=== PATIENT | female | born 1955 | race Caucasian/White ===

== ENCOUNTER 2018-02-06 18:00 | Outpatient (RCR) | payer OTHER, SELFPAY ==
--- NOTE | 2018-01-24 07:40 | HP.OTEVAL ---
Patient's Visit Information SYLVIE TATE is a 62 year old F, referred to Occupational Therapy by Nemesio Fish, with a diagnosis of pain in right wrist -pain in left wrist. Date of Evaluation: 01/23/18 Occupational Therapist: Tita Denney, OTR/[place], CHT - Subjective Subjective: This pt was referred to OT with symptoms of pain in wrist shooting into her fingers tips- pt states did give her medication to assist in decreassing the inflamation. pt states she has had tendonities for year in both wrist- pt states she also has arthritis. pt states she does have wrist brace at night. pt states cold air or weather does increase her pain. 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 - Pain left wrist 4 Pain Intensity Range: 0, 4 right wrist 4 Pain Intensity Range: 0, 4 - ROM Wrist: right 60/40 left 70/75 ROM Comments: right RD [address] 10 UD 30 - Strength Senior Business Development Analyst: right 30# left 40# Lateral Pinch: right 2# left 4# Tripod Pinch: right 1# left 3# - Sensation Thumb: right 3.22 left 2.83 Index: right 2.83 left 2.83 Middle: right 2.83 left 2.83 Ring: right 2.83 left 2.83 Little: right 2.83 left 2.83 Sensation Comments: pt states N/T with driving but states this has been going on for awile. pt states her finger tips get cold at times. - Hand/Wrist Evaluation Total Score of Pain & Functional Sections: 52 - Goals Goal:: pt will demo a increase in bilateral chauffeur strength by 20# to increase ind. with BADLs and IADLS by d/c Goal:: pt will report pain no greater than 1/10 with use of bilateral hands/UB with use of BADLs and IADLs by D/C Goal:: pt will demo understanding of joint protection, use of ad. eq and ergo tranning by d/c Goal:: pt will demo understanding of donning and doffing of custom ortthosis by end of 1st visit-. pt will demo understanding of orthosis precautions by end of 1st session. - Rehabilitation General Assessment: pt demo with positive right Dequervains and left wrist pain with resistance in flex/ext- pt would benefit from custom orthosis for right wrist to decrease pain- pt was ed today on orthosis use, care and precautions. pt is to return if she needs orthosis adj ant. pt would benefit from skilled OTR/L, CHT services to decrease pts pain and promote good work and ADLs ergonomics- pt demo with arthitis deformities on bilateral hands at [facility], MP and IP of thumbs and MCP, PIP and DIP of bilateral digits- pt does also demo with arthritis formation at base of IF and carpal bones- pt would benefit from ed. on joint protection and ad. eq use for ADLS and IADS. Rehabilitation Potential: Good - Anticipated Interventions Anticipated Interventions: A/AAROM/PROM, Strengthening, Triggerpoint Release, Modalities, Orthoses, Joint Protection/Energy Conservation, Ergonomic Education - Visit Plan Frequency: 1-2x /Week Duration: 6 Weeks TEXT: Thank you for the opportunity to evaluate your patient. For Medicare and Medicare HMO plans, please review the plan of care and approve it. It will need to be FAXED BACK to us at [phone] for Medicare purposes. Please let me know if there are questions or concerns regarding this plan of care. Physician Signature: Date:
--- NOTE | 2018-02-06 18:00 | DT_ITS ---
This patient was seen during an EMR downtime February 06, 2018 - February 13, 2018. This patient may have a combination of paper and electronic documentation or all paper documentation. All documentation is viewable within the e-chart portion of [employer] for each patient visit.
--- NOTE | 2018-03-22 12:18 | HP.OT.NRP ---
HP - Discharge Summary - Patient Information SYLVIE TATE was seen in my office for initial evaluation on 01/23/18. The following Plan of Care was established for this patient: Initial Frequency: 1-2x /Week Initial Duration: 6 Weeks - Anticipated Interventions Anticipated Interventions: A/AAROM/PROM, Strengthening, Triggerpoint Release, Modalities, Orthoses, Joint Protection/Energy Conservation, Ergonomic Education This patient was last seen in our office 02/06/18. Pertinent comments regarding their Occupational therapy will appear below: pt was seen for initial eval and then 2nd visit- pt continued to report pain following work tasks- pt was to cont. with therapy but has not scheduled since February 06. OT will D/C pt due to non attendance. At this point I will be discontinuing this patient from occupational therapy. I would be happy to see this patient again in the future if found appropriate by the physician. Thank you! Tita Denney, OTR/L, CHT
== END 2018-02-06 19:00 | disposition home or self-care (01) ==
LOC: OT 18:00
PROVIDERS: Family Provider Nurse Practitioner Family; PCP Nurse Practitioner Family; Visit Provider Orthopaedic Surgery
DX: M25.532 Pain in left wrist (principal); M25.531 Pain in right wrist
CPT/HCPCS: 97035; 97140; 97166; 97760

== ENCOUNTER → 2018-03-29 06:37 | Outpatient (CLI) | payer OTHER, SELFPAY ==
--- NOTE | 2018-03-29 10:31 | NEURO ---
NCS and/or EMG Patient Report Ordering Doctor: Nemesio Fish DATE OF SERVICE: 03/29/18 This is a bilateral upper extremity nerve conduction study performed on this 62-year-old female with a history of numbness tingling and weakness in both hands worse on the right side. Symptoms have been present for several years. Bilateral upper extremity sensory and motor nerve conduction studies are performed along with F waves latencies. The median motor and sensory distal latencies are prolonged with preservation of amplitudes and conduction velocities. The ulnar motor and sensory and radial sensory responses are normal. The median F waves bilaterally are mildly prolonged worse on the right side. Impression this is an abnormal nerve conduction study of the bilateral upper extremities consistent with carpal tunnel syndrome bilaterally, moderate.
--- NOTE | 2018-03-29 10:34 | NEURO_ITS ---
NCS and/or EMG Patient Report Ordering Doctor: Nemesio Fish DATE OF SERVICE: 03/29/18 This is a bilateral upper extremity nerve conduction study performed on this 62- year-old female with a history of numbness tingling and weakness in both hands worse on the right side. Symptoms have been present for several years. Bilateral upper extremity sensory and motor nerve conduction studies are performed along with F waves latencies. The median motor and sensory distal latencies are prolonged with preservation of amplitudes and conduction velocities. The ulnar motor and sensory and radial sensory responses are normal. The median F waves bilaterally are mildly prolonged worse on the right side. Impression this is an abnormal nerve conduction study of the bilateral upper extremities consistent with carpal tunnel syndrome bilaterally, moderate.
== END ==
PROVIDERS: Family Provider Nurse Practitioner Family; PCP Nurse Practitioner Family; Visit Provider Orthopaedic Surgery
DX: M25.531 Pain in right wrist (principal); M25.532 Pain in left wrist
CPT/HCPCS: 95911

== ENCOUNTER → 2020-10-03 08:10 | Outpatient (CLI) | payer OTHER, SELFPAY ==
[2020-10-03 10:09] LABS: Vitamin D,25 Hydroxy 71.5 ng/mL
[2020-10-03 10:26] LABS: ALB/GLOB Ratio 1.1 RATIO (0.9-2.4); AST(SGOT) 13 U/L (15-37); Alanine Aminotransfer ALT/SGPT 25 U/L (13-56); Albumin, Serum 3.8 g/dL (3.2-5.0); Alkaline Phosphatase 86 U/L (45-117); Anion Gap 6 (5-15); BUN 14 mg/dL (7-18); BUN/Creat Ratio 20.3 RATIO (10-20); Calcium,Total 8.6 mg/dL (8.5-10.1); Chloride 110 mmol/L (98-107); Cholesterol 184 mg/dL (200); Creatinine, Serum 0.69 mg/dL (0.55-1.02); EST Glomerular Filtration Rate 91 mL/min (>60); Est Glom Filt Rate - Afr Amer 111 mL/min (>60); Globulin 3.4 g/dL (2.2-4.2); Glucose 86 mg/dL (74-106); High Density Lipoprotein 73 mg/dL; Potassium 4.1 mmol/L (3.5-5.1); Protein, Total 7.2 g/dL (6.4-8.2); Sodium Level 140 mmol/L (136-145); Triglycerides 71 mg/dL; Very Low Density Lipoprotein 14 mg/dL (5-40)
== END ==
PROVIDERS: PCP Family Medicine; Referring Provider Family Medicine; Visit Provider Family Medicine
DX: E55.9 Vitamin D deficiency, unspecified (principal); E78.5 Hyperlipidemia, unspecified
CPT/HCPCS: 36415; 80053; 80061; 82306

== ENCOUNTER → 2021-06-24 08:09 | Outpatient (CLI) | payer OTHER, SELFPAY ==
[2021-06-24 10:15] LABS: Absolute Lymphocyte Count 2.31 X10^3/uL (0.83-4.51); Absolute Neutrophil Count 2.4 X10^3/uL (2.0-7.7); Basophil# 0.05 X10^3/uL; Basophil% 0.9 % (0-1); Eosinophil# 0.15 X10^3/uL; Eosinophils% 2.8 % (0-5); Hematocrit 40.9 % (37-47); Hemoglobin 13.1 g/dL (12.0-15.0); Lymphocyte # 2.31 X10^3/ul (0.83-4.51); Lymphocyte % 43.3 % (19-41); Mean Corpuscular Hgb 29.3 pg (27.0-32.0); Mean Corpuscular Volume 91.5 fL (81-99); Mean Platelet Vol. 11.1 fl (6.2-12.0); Monocyte# 0.37 X10^3/uL; Monocyte% 6.9 % (0-10); NRBC Flagged by Analyzer 0 % (0-5); Neutrophil # 2.43 X10^3/uL (2.7-7.7); Neutrophil % 45.7 % (47-70); Platelet Count 325 K/mm3 (150-450); RBC Distribution Width CV 13.1 % (11.6-14.6); Red Blood Count 4.47 M/mm3 (4.2-5.4); White Blood Count 5.3 K/mm3 (4.4-11.0)
[2021-06-24 10:27] LABS: AST(SGOT) 16 U/L (15-37); Alanine Aminotransfer ALT/SGPT 20 U/L (13-56); Albumin, Serum 3.6 g/dL (3.2-5.0); Alkaline Phosphatase 91 U/L (45-117); Anion Gap 6 (5-15); BUN 22 mg/dL (7-18); BUN/Creat Ratio 27.8 RATIO (10-20); Calcium,Total 8.7 mg/dL (8.5-10.1); Chloride 108 mmol/L (98-107); Cholesterol 166 mg/dL (200); Creatinine, Serum 0.79 mg/dL (0.55-1.02); EST Glomerular Filtration Rate 78 mL/min (>60); Est Glom Filt Rate - Afr Amer 94 mL/min (>60); Globulin 3.6 g/dL (2.2-4.2); Glucose 98 mg/dL (74-106); High Density Lipoprotein 67 mg/dL; Protein, Total 7.2 g/dL (6.4-8.2); Sodium Level 141 mmol/L (136-145); Triglycerides 57 mg/dL; Very Low Density Lipoprotein 11 mg/dL (5-40)
== END ==
PROVIDERS: PCP Family Medicine; Referring Provider Family Medicine; Visit Provider Family Medicine
DX: E78.5 Hyperlipidemia, unspecified (principal)
CPT/HCPCS: 36415; 80053; 80061; 85025

== ENCOUNTER → 2022-01-26 | Outpatient (CLI) | payer OTHER, SELFPAY ==
--- NOTE | 2022-01-26 15:40 | BI_ITS ---
MAMMOGRAPHY - BILATERAL SCREENING REASON FOR EXAM: Female, 66 years old. Routine annual screening examination. PERTINENT HISTORY: Non-contributory. TECHNIQUE: Digital bilateral breast miriam (3D mammographic acquisition) in the CC and MLO projections. 2-D mediolateral oblique (MLO) and craniocaudad (CC) views of both breasts were obtained. CAD: Full Field Digital Mammography with Computer Added Detection was performed. COMPARISON: Bilateral screening mammogram from 03/25/2020, 01/10/2019. FINDINGS: Breast Composition: The breasts are heterogeneously dense, which may obscure small masses. There are no dominant masses or suspicious calcifications. No other significant abnormalities are identified. There has been no significant change since the prior study. BI/SCRN MAMM (CAD)W/MIRIAM BILAT IMPRESSION: Stable bilateral screening mammogram. Yearly follow-up mammogram recommended. (A) ASSESSMENT CATEGORY: BIRADS Category 1: Negative. A letter regarding these results will be sent to the patient by the facility within 30 days. Approximately 10% of breast cancers are not detected by mammography. A normal mammogram should not delay biopsy of a clinically suspicious abnormality. [id number] Electronically Signed: Antolin Jimenez, at 15:44 EDT ,
--- NOTE | 2022-01-26 15:44 | BD_ITS ---
STUDY: DUAL ENERGY X-RAY ABSORPTIOMETRY / DXA REASON FOR EXAM: Female, 66 years old. [id number]. The patient is postmenopausal. TECHNIQUE: Bone Mineral Density (BMD) measurements of lumbar spine and bilateral hips were obtained. COMPARISON: None. FINDINGS: Lumbar Spine (L1-L4): g/cm2 (0.737) / T-score (-2.8) / Z-score (-1.0) Findings are suggestive of osteoporosis with a high fracture risk. Left Femur Total: g/cm2 (0.795) / T-score (-1.2) / Z-score (0.0) Left Femoral Neck: g/cm2 (0.621) / T-score (-2.1) / Z-score (-0.5) Right Femur Total: g/cm2 (0.798) / T-score (-1.2) / Z-score (0.1) Right Femoral Neck: g/cm2 (0.667) / T-score (-1.7) / Z-score (0.1) BD/Dexa Bone Density Study IMPRESSION: The patient is considered osteoporotic as outlined below according to World Abhinav Organization (WHO) criteria with a high fracture risk. Reference Information: The T-score is the number of standard deviations above or below the standard which is normal for young adults at their peak bone mineral density. The World Health Organization (WHO) interprets the T-scores as follows: Above -1 Normal bone density Between -1 and -2.5 Osteopenia Equal to / or below -2.5 Osteoporosis As a practical clinical guideline, osteopenia may be graded as follows: Mild -1 through -1.5 Moderate -1.6 through -2.0 Severe -2.1 through -2.4 The Z-score is the number of standard deviations above or below age-matched controls. A Z-score of less than -1.5 would be considered abnormal. References: 1. NIH Osteoporosis and Related Bone Diseases www osteo.org 2. International Society for Clinical Densitometry www iscd.org 3. National Osteoporosis Foundation www nof.org Electronically Signed: Jamie Colin MD at 10:39 EDT ,
== END | disposition home or self-care (01) ==
LOC: OPBD 15:38
PROVIDERS: PCP Family Medicine; Visit Provider Family Medicine
DX: Z00.00 Encounter for general adult medical examination without abnormal findings (principal); Z12.31 Encounter for screening mammogram for malignant neoplasm of breast; Z78.0 Asymptomatic menopausal state
CPT/HCPCS: 77063; 77067; 77080

== ENCOUNTER → 2022-03-05 | Outpatient (CLI) | payer OTHER, SELFPAY ==
--- NOTE | 2022-03-05 08:12 | RAD_ITS ---
STUDY: BARIUM ENEMA. REASON FOR EXAM: Female, 66 years old. INCOMPLETE COLONS COPY FLUOROSCOPY TIME (if supplied): ( 59 seconds ) minutes/seconds. 12 images were obtained. TECHNIQUE: Barium was introduced retrograde through the rectum. The entire colon was opacified. COMPARISON: None. FINDINGS: Redundancy of the sigmoid colon. No evidence of retrograde or antegrade obstruction to the floor of contrast. No intraluminal filling defect is seen. No mass lesion is present. RAD/Barium Enema No Air Cont IMPRESSION: Unremarkable barium enema. Redundancy of the sigmoid colon. Electronically Signed: Jamie Colin MD at 11:16 EDT ,
== END | disposition home or self-care (01) ==
PROVIDERS: PCP Family Medicine; Referring Provider Internal Medicine Gastroenterology; Visit Provider Internal Medicine Gastroenterology
DX: K56.609 Unspecified intestinal obstruction, unspecified as to partial versus complete obstruction (principal)
CPT/HCPCS: 74270

== ENCOUNTER 2022-10-22 08:11 | Outpatient (CLI) | payer OTHER, SELFPAY ==
--- OUTSIDE RECORDS SUMMARY | 2022-10-22 08:17 | XMS RPT_ITS | CCD ---
:1955 Author Organization [facility] Care Team Providers Name Role Phone REFERRINGNEGAR YEHUDA Unavailable Unavailable PRABHAKAR MERA Unavailable Unavailable PRABHAKAR MERA Unavailable Unavailable Problems Active Problems Problem Classification Problem Date Documented Date Ep isodic/Chronic Unclassified Unknown / Onset: (1 source) UNK(Unknown) 03-17-2017 Past or Other Problems Problem Classification Problem Date Documented Date Ep isodic/Chronic Unclassified SCREENING Onset: 03-17-2017 (1 source) Results Test Name Value Interpretation Reference Range Facility XR KNEE THREE VIEWS RIGHT on XR KNEE THREE VIEWS ORIGINAL Normal [facility] RIGHT INDICATION:ORDERING SYSTEM PROVIDED HISTORY: [facility] ([place]) Reason for Exam: fall TECHNIQUE: KNEE 3 VIEWS RIGHT COMPARISON: None available FINDINGS/IMPRESSION: No acute fracture or dislocation. No soft tissue swell ing. No suprapatellar joint effusion. 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 The tissue of both breasts is heterogeneously dense. Current study was also evaluated with a Computer Aided Detection (CAD) system. There is a benign intramamma ry node in the right breast. There also are benign calcifications in both breasts. No significant masses, calci fications, or other findings are seen in either breast. There has been no significant interval change. IMPRESSION: BENIGN There is no mammographic julianne dence of malignancy. A 1 year screening mammogram is recommended.(03/26/2021) KAMRYN VILLAVICENCIO MD cm/penmarge:03/26/2020 17:42:14 Geology Instructor(s): TIFFANY VAN RT (R)(M), [facility] letter sent: Normal BI-RADS 1&2 Mammogram BI-RADS: 2 Benign MA MAMMOGRAM SCREENING BILATERAL W/MIRIAM on 03-17-2017 MA MAMMOGRAM SCREENING ORIGINALFROM:[facility] Normal [facility] BILATERAL W/MIRIAM [address] [address]Jepmn: [phone] PROCEDURE FOR:SYLVIE TATE[address] [place], [place] [address]Qwry: [phone]#: [id number]#: [id number]#: [id number]: 1955ge: 61 TO:PRABHAKAR MERA [address] [place], [place] [address] #[id number] DIGITAL SCREENING MAMMOGRAM 3D/2D WITH CAD WITH MEDIOLATERAL OBLIQUE CRANIOCAUDAL: 03/17/2017Comparison is made to exam dated: 01/29/2016 mammogram - [facility]. There are scattered fibroglandular elements in both breasts. Current study was also evaluated with a Computer Aided Detection (CAD) system. There are benign calcifications in both breasts. There also are benign lymph nodes in both breasts. No significant masses, calcifications, or other findings are seen in either breast. There has been no significant interval change. IMPRESSION: BENIGNThere is no mammographic evidence of malignancy. A 1 year screening mammogram is recommended. ADRI magana/nitza:03/18/2017 16:24:13 Geology Instructor: MANISH RUDOLPH RT(R)(M)(CT) [facility] BI-RADS 1&2 Mammogram BI-RADS: 2 Benign Encounters Encounter Date Encounter Type Care Provider Facility Start: 03-17-2017 Ambulatory PHY WO ID REFERRING Facility:[facility] Payers Date Payer Category Payer Unknown [id number] Summary Purpose Family History No Family History Records FoundNo Family History Records Found Advance Directives No Advanced Directives Records FoundNo Advanced Directives Records Found Additional Source Comments INFORMATION SOURCE (unrecognized section and content) DATE CREATED AUTHOR AUTHOR'S ORGANIZ ATION 03/01/2018 [facility] DATE CREATED AUTHOR AUTHOR'S ORGANIZATIO N 03/20/2021 [facility] ([place]) FOR RECORDS PERTAINING TO PATIENTS WHO ARE OR HAVE BEEN ENROLLED IN A CHEMICAL DEPENDENCY/SUBSTANCE ABUSE PROGRAM, SOME INFORMATION MAY BE OMITTED. This clinical summary was aggregated from multiple sources. Caution should be exercised in using it in the provision of clinical care. This summary normalizes information from multiple sources, and as a consequence, information in this document may materially change the coding, format and clinical context of patient data. In addition, data may be omittedin some cases. CLINICAL DECISIONS SHOULD BE BASED ON THE PRIMARY CLINICAL RECORDS. [employer] provides no warranty or guarantee of the accuracy or completeness of information in this document.
[2022-10-22 10:36] LABS: Anion Gap 7 (5-15); BUN 25 mg/dL (7-18); BUN/Creat Ratio 26.6 RATIO (10-20); Calcium,Total 8.9 mg/dL (8.5-10.1); Chloride 111 mmol/L (98-107); Creatinine, Serum 0.94 mg/dL (0.55-1.02); EST Glomerular Filtration Rate 63 mL/min (>60); Est Glom Filt Rate - Afr Amer 77 mL/min (>60); Glucose 97 mg/dL (74-106); Magnesium 2.1 mg/dL (1.6-2.6); Phosphorus 3.6 mg/dL (2.5-4.9); Potassium 4.4 mmol/L (3.5-5.1); Sodium Level 141 mmol/L (136-145); Vitamin D,25 Hydroxy 93.7 ng/mL
== END 2022-10-22 23:59 | disposition home or self-care (01) ==
LOC: MFPLAB 08:12
PROVIDERS: PCP Family Medicine; Referring Provider Family Medicine; Visit Provider Family Medicine
DX: M81.0 Age-related osteoporosis without current pathological fracture (principal); E55.9 Vitamin D deficiency, unspecified
CPT/HCPCS: 36415; 80048; 82306; 82330; 83735; 83970; 84100

== ENCOUNTER → 2024-05-25 | Outpatient (CLI) | payer OTHER, SELFPAY ==
--- NOTE | 2024-05-25 09:01 | BD_ITS ---
STUDY: DUAL ENERGY X-RAY ABSORPTIOMETRY / DXA REASON FOR EXAM: Female, 68 years old. 627.8Menopausal postmenopausalBONE DENSITY REASON FOR EXAM TECHNIQUE: Bone Mineral Density (BMD) measurements of lumbar spine and bilateral hips were obtained. COMPARISON: Comparison is made with prior study dated January 26, 2022. FINDINGS: Lumbar Spine (L1-L4): g/cm2 (0.744) / T-score (-2.8) / Z-score (-0.8) Findings are suggestive of osteoporosis with a high fracture risk. Left Femur Total: g/cm2 (0.798) / T-score (-1.2) / Z-score (0.2) Left Femoral Neck: g/cm2 (0.654) / T-score (-1.8) / Z-score (0.1) Right Femur Total: g/cm2 (0.803) / T-score (-1.1) / Z-score (0.2) Right Femoral Neck: g/cm2 (0.620) / T-score (-2.1) / Z-score (-0.4) The T-Scores on the most recent prior examination were: Lumbar Spine (L1-L4): There has been improvement of bone density since the previous examination. Left Femur Total: which represents an improvement of 0.3%. Right Femur Total: which represents an improvement of 0.6%. BD/Dexa Bone Density Study IMPRESSION: The patient is considered osteoporotic as outlined below according to World Abhinav Organization (WHO) criteria with a high fracture risk. There has been improvement of bone density since the previous examination. Reference Information: The T-score is the number of standard deviations above or below the standard which is normal for young adults at their peak bone mineral density. The World Health Organization (WHO) interprets the T-scores as follows: Above -1 Normal bone density Between -1 and -2.5 Osteopenia Equal to / or below -2.5 Osteoporosis As a practical clinical guideline, osteopenia may be graded as follows: Mild -1 through -1.5 Moderate -1.6 through -2.0 Severe -2.1 through -2.4 The Z-score is the number of standard deviations above or below age-matched controls. A Z-score of less than -1.5 would be considered abnormal. References: 1. NIH Osteoporosis and Related Bone Diseases www osteo.org 2. International Society for Clinical Densitometry www iscd.org 3. National Osteoporosis Foundation www nof.org Electronically Signed: Jamie Colin MD at 13:08 EDT ,
--- NOTE | 2024-05-25 09:01 | BI_ITS ---
MAMMOGRAPHY - BILATERAL SCREENING REASON FOR EXAM: Female, 68 years old. Routine annual screening examination. PERTINENT HISTORY: Non-contributory. TECHNIQUE: Digital bilateral breast miriam (3D mammographic acquisition) in the CC and MLO projections. 2-D mediolateral oblique (MLO) and craniocaudad (CC) views of both breasts were obtained. CAD: Full Field Digital Mammography with Computer Added Detection was performed. COMPARISON: Comparison is made with prior study dated January 26, 2022. FINDINGS: Breast Composition: The breasts are heterogeneously dense, which may obscure small masses. There are no dominant masses or suspicious calcifications. Stable fat-containing left axillary lymph nodes. No other significant abnormalities are identified. There has been no significant change since the prior study. BI/SCRN MAMM (CAD)W/MIRIAM BILAT IMPRESSION: Stable bilateral screening mammogram. Yearly follow-up mammogram recommended. (A) ASSESSMENT CATEGORY: BIRADS Category 2: Benign. A letter regarding these results will be sent to the patient by the facility within 30 days. Approximately 10% of breast cancers are not detected by mammography. A normal mammogram should not delay biopsy of a clinically suspicious abnormality. [id number] Electronically Signed: Jamie Colin MD at 9:48 EDT ,
== END | disposition home or self-care (01) ==
LOC: OPBD 09:00
PROVIDERS: PCP Family Medicine; Referring Provider Family Medicine; Visit Provider Family Medicine
DX: Z00.00 Encounter for general adult medical examination without abnormal findings (principal); Z12.31 Encounter for screening mammogram for malignant neoplasm of breast; M81.0 Age-related osteoporosis without current pathological fracture
CPT/HCPCS: 77063; 77067; 77080

== ENCOUNTER → 2025-05-31 | Outpatient (CLI) | payer MEDICARE, OTHER, SELFPAY ==
--- NOTE | 2025-05-31 07:15 | BI_ITS ---
EXAM: SCRN MAMM (CAD)W/MIRIAM BILAT DATE: 05/31/2025 CLINICAL HISTORY: F, Age 69 y/o, SCREENING FOR BREAST CANCER TECHNIQUE: Procedure Code: BISMWCADBTOM Modality: MG Procedure: SCRN MAMM (CAD)W/MIRIAM BILAT COMPARISON: Prior exam(s) dated 05/25/2024, 01/26/2022. FINDINGS: TISSUE DENSITY: There are scattered areas of fibroglandular density. Bilateral Breast Mammographic Findings: No significant masses, calcifications or other abnormalities are identified. BI/SCRN MAMM (CAD)W/MIRIAM BILAT IMPRESSION: There is no mammographic evidence of malignancy. OVERALL FINAL ASSESSMENT BI-RADS 1: NEGATIVE. RECOMMENDATION: Routine annual follow-up in 1 Year Additional Recommendation none A letter with findings and recommendations will be mailed to the patient. Reading Location: [id number]
--- NOTE | 2025-05-31 07:15 | BI_ITS ---
EXAM: SCRN MAMM (CAD)W/MIRIAM BILAT DATE: 05/31/2025 CLINICAL HISTORY: F, Age 69 y/o, SCREENING FOR BREAST CANCER TECHNIQUE: Procedure Code: BISMWCADBTOM Modality: MG Procedure: SCRN MAMM (CAD)W/MIRIAM BILAT COMPARISON: Prior exam(s) dated 05/25/2024, 01/26/2022. FINDINGS: TISSUE DENSITY: There are scattered areas of fibroglandular density. Bilateral Breast Mammographic Findings: No significant masses, calcifications or other abnormalities are identified. BI/SCRN MAMM (CAD)W/MIRIAM BILAT IMPRESSION: There is no mammographic evidence of malignancy. OVERALL FINAL ASSESSMENT BI-RADS 1: NEGATIVE. RECOMMENDATION: Routine annual follow-up in 1 Year Additional Recommendation none A letter with findings and recommendations will be mailed to the patient. Reading Location: [id number]
--- OUTSIDE RECORDS SUMMARY | 2025-05-31 07:20 | XMS RPT_ITS | CCD ---
Author Organization [facility] Inform ion Partnership [facility] Care Team Providers Care Physiotherapy Assistant Name Role Phone REFERRING, NEGAR BLACKMAN Unavailable Unavailable SAGE LUND Unavailable Unavailable SAGE LUND Unavailable Unavailable Unavailable Primary Care Provider UnavailCLARENCE Marroquin Attending Unavailable Abel Shirley Referring Unavailable Abel Shirley Attending Unavailable Abel Shirley Primary Care Unavailable Allergies Allergy Classification Reported Allergen(s) Allergy Type Date of Onset Reaction(s) Facility (2 sources) hydroCHLOROthiazi de; Translations: [HYDROCHLOROTHIAZ KATHY] Drug Allergy 01-08-2010 [facility] Medications Current Medications Medication Drug Class(es) Dates Sig (Normalized) Sig (Original) celecoxib 200 mg oral capsule (1 source) Nonsteroidal Anti-inflammatory Drug Start: 01-03-2025 take 1 capsule by mouth once daily celecoxib (CELEBREX) 200 mg capsule Take 1 capsule by mouth once daily. 01/03/2025 Active cholecalciferol 1.25 mg oral capsule (1 source) Vitamin D Start: 01-24-2025 take 1 capsule by mouth every week cholecalciferol, Vitamin D3, (VITAMIN D3) 1,250 mcg (50,000 unit) cap capsule Take 1 capsule by mouth one time a week. 01/24/2025 Active pantoprazole 40 mg delayed release oral tablet (1 source) Proton Pump Inhibitor Start: 01-03-2025 take 1 tablet by mouth once daily pantoprazole DR (PROTONIX) 40 mg tablet Take 1 tablet by mouth once daily. 01/03/2025 Active predniSONE 10 mg oral tablet (1 source) Start: 03-13-2025 predniSONE (DELTASONE) 10 mg tablet Take 4 tabs daily for 3 days, then 2 tabs daily for 3 days, then 1 tab daily for 3 days with food. 21 tablet 03/13/2025 Active simvastatin 10 mg oral tablet (1 source) HMG-CoA Reductase Inhibitor Start: 11-28-2008 simvastatin(ZOCOR 10 MG TAB) Take one(1) tablet daily at bedtime. 0 11/28/2008 Active triamcinolone acetonide 1 mg/ml topical cream (1 source) Corticosteroid Start: 03-13-2025 End: 03-20-2025 triamcinolone acetonide (KENALOG) 0.1 % cream Apply 1 application to affected area three times a day for 7 days. Apply sparingly to area for rash/itching. 80 g 03/13/2025 03/20/2025 Active Problems Active Problems Problem Classification Problem Date Documented Da te Episodic/Chronic Disorders of lipid metabolism (1 source) Hyperlipidemia; Translations: [Hyperlipidemia, unspecified] Onset: 06-21-2005 01-01-2025 Chronic Menopausal disorders (1 source) Menopausal symptom; Translations: [Menopausal and female climacteric states] Onset: 06-21-2005 01-01-2025 Chronic Other screening for suspected conditions (not mental disorders or infectious disease) (1 source) Encounter for screening mammogram for malignant neoplasm of breast; Translations: [Encounter for screening mammogram for malignant neoplasm of breast] Onset: 05-24-2025 Episodic Other skin disorders (1 source) Eruption; Translations: [Rash and other nonspecific skin eruption] 03-13-2025 Episodic Other skin disorders (1 source) Rash and other nonspecific skin eruption; Translations: [Rash] Onset: 03-13-2025 Episodic Unclassified (1 source) Unknown / UNK(Unknown) Onset: 03-17-2017 Past or Other Problems Problem Classification Problem Date Documented Da te Episodic/Chronic Unclassified (1 source) SCREENING Onset: 03-17-2017 Results Test Name Value Interpretation Reference Range Facility [facility] 03-13-2025 CNOV Office Visit ([facility]) JENNIFER TATE ([id number]) 1955 F Date Time Provider Department 03/13/25 8:30 AM CLARENCE MARI During your visit today, we recorded the following information about you: Temperature Pulse Respiration Blood pressure 97.4 degrees 95/minute 20/minute 120/82 Weight 74.8 kg Clarence Mari APRN.CNP 03/13/2025 10:00 AM Signed [facility] Subjective Jennifer Tate is a 69 year old female. Patient presents with: Rash: Poison tiara on face and BECKI eyes Patient came in with a rash on her face, upper eye lids, and left arm. Patient states that she was doing yard work on Tuesday and noticed a rah develop and started itching yesterday. Patient states that this has happened to her in the past. Patient has tried benadryl and a warm compresses but had minimal relief. Patient reports rash is itchy. Patient states that she struggles to see out of left eye due to a swollen eyelid. Patient feels that the rash is spreading to her other eye. Denies fever, pain, vision changes, and eye pain. Rash Pertinent negatives include no cough, diarrhea, eye pain, fatigue, fever, shortness of breath or vomiting. Review of Systems Constitutional: Negative for chills, fatigue and fever. HENT: Negative. Eyes: Positive for itching. Negative for pain, discharge, redness and visual disturbance. Respiratory: Negative for cough and shortness of breath. Gastrointestinal: Negative for abdominal pain, diarrhea, nausea and vomiting. Skin: Positive for rash. Neurological: Negative for dizziness and headaches. PAST MEDICAL HISTORY Diagnosis Date Other and unspecified hyperlipidemia Unspecified essential hypertension PAST SURGICAL HISTORY Procedure Laterality Date PAST SURGICAL HISTORY OF age24 exploratory surgery of bowel-growth size of golf ball excized TOTAL ABDOMINAL HYSTERECT W/WO RMVL TUBE OVARY age36 Hysterectomy, JUANIS for endometriosis ALLERGIES Hydrochlorothiazide MEDICATIONS celecoxib (CELEBREX) 200 mg capsule Take 1 capsule by mouth once daily. cholecalciferol, Vitamin D3, (VITAMIN D3) 1,250 mcg (50,000 unit) cap capsule Take 1 capsule by mouth one time a week. pantoprazole DR (PROTONIX) 40 mg tablet Take 1 tablet by mouth once daily. simvastatin(ZOCOR 10 MG TAB) Take one(1) tablet daily at bedtime. triamcinolone acetonide (KENALOG) 0.1 % cream Apply 1 application to affected area three times a day for 7 days. Apply sparingly to area for rash/itching. predniSONE (DELTASONE) 10 mg tablet Take 4 tabs daily for 3 days, then 2 tabs daily for 3 days, then 1 tab daily for 3 days with food. FAMILY HISTORY Adopted: Yes Problem Relation Age of Onset Breast Cancer Mother mother age 50's Heart Father father of [place] Coronary Artery Disease Brother stents placed Social History Tobacco Use Smoking status: Never Substance Use Topics Alcohol use: No Comment: occasional Drug use: No Objective BP 120/82 Pulse 95 Temp 36.3 ?C (97.4 ?F) Resp 20 Wt 74.8 kg (164 lb 14.5 oz) SpO2 97% Physical Exam Constitutional: Appearance: Normal appearance. HENT: Head: Normocephalic and atraumatic. Right Ear: Tympanic membrane, ear canal and external ear normal. Left Ear: Tympanic membrane, ear canal and external ear normal. Mouth/Throat: Mouth: Mucous membranes are moist. Pharynx: Oropharynx is clear. Uvula midline. Eyes: General: Right eye: No discharge. Left eye: No discharge. Extraocular Movements: Extraocular movements intact. Conjunctiva/sclera: Conjunctivae normal. Pupils: Pupils are equal, round, and reactive to light. Comments: Periorbital rash around eyes. Left eyelid red and swollen, no scleral redness, or discharge. Cardiovascular: Rate and Rhythm: Normal rate and regular rhythm. Heart sounds: Normal heart sounds. Pulmonary: Effort: Pulmonary effort is normal. Breath sounds: Normal breath sounds. Skin: General: Skin is warm and dry. Findings: Rash present. Rash is vesicular. Comments: Red vesicular rash located on left wrist and bilaterally on face. Neurological: Mental Status: She is alert and oriented to person, place, and time. Psychiatric: Behavior: Behavior is cooperative. {ASSESSMENT/PLAN: 1. Rash - ICD9: 782.1, ICD10: R21 - Patient to begin prednisone for rash - Patient instructed to also take zyrtec everyday to help with symptoms - Patient also prescribed kenalog cream and was educated to avoid applying to areas of thin skin including face, armpits, breasts, and genitals. - Patient also educated to avoid taking Celebrex with prednisone due to risk of GI ulcers and bleeding - Patient will follow up if fever, pain, vision changes, or eye pain develops - Patient agreeable to care plan with no questions at this time Dorian Ravi MDM Procedures Clarence Mari APRN.TRANSCRIPTION MANAGER 7 (more content not included)... Normal [facility] Molina Basophil percentageOrdered B y: Dr. Shirley on 10-22-2022 Basophil percentage 3.6 mg/dL 2.5-4.9 [facility] Chloride [Moles/Vol] 111 mmol/L 98-107 [facility] Glucose [Mass/Vol] 97 mg/dL 74-106 [facility] Potassium [Moles/Vol] 4.4 mmol/L 3.5-5.1 [facility] Comment on above: Slight Hemolysis, Re sult may be falsely increased. Sodium [Moles/Vol] 141 mmol/L 136-145 [facility] Laboratory - Chemistry and C hemistry - challengeOrdered By: Dr. Shirley on 10-22-2022 CO2 [Moles/Vol] 23.0 mmol/L 21.0-32.0 [facility] Magnesium [Mass/Vol] 2.1 mg/dL 1.6-2.6 [facility] Comment on above: Slight Hemolysis, Re sult may be falsely increased. Urea nitrogen/Creatinine [Mass ratio] 26.6 mg/mg 10-20 [facility] No Panel InformationOrdered By: Dr. Shirley on 10-22-2022 Estimated GFR (MDRD) Amer 77 mL/min >60 [facility] Comment on above: GFR Calc Estimated GFR (MDRD) Non-Af Amer 63 mL/min >60 [facility] Comment on above: Non- GFR Calc Ionized Calcium 5.3 mg/dL 4.5-5.6 [facility] Comment on above: Performed at: [address] [id number] Director: Jono Fong PhD, Phone: [phone] Parathyroid Hormone (Intact) 46.0 pg/mL 18.4-80.1 [facility] Vitamin D 25-Hydroxy 93.7 ng/mL [facility] Comment on above: Vitamin D 25(OH) Sta tus Range Deficiency <20 ng/mL (50nmol/L) Insufficiency 20 - 30 ng/mL (50 - 75 nmol/L) Sufficiency 30 - 100 ng/mL (75 - 250 nmol/L) Toxicity >100 ng/mL (>250 nmol/L) Serum or plasma calcium villa urement (mass/volume)Ordered By: Dr. Shirley on 10-22-2022 Calcium [Mass/Vol] 8.9 mg/dL 8.5-10.1 [facility] Serum or plasma creatinine m easurement (mass/volume)Ordered By: Dr. Shirley on 10-22-2022 Creatinine [Mass/Vol] 0.94 mg/dL 0.55-1.02 [facility] Comment on above: The validity of the calculated GFR & GFRAA in patients over 70 years has not been determined. Clinical correlation is essential. Serum or plasma urea nitroge n measurement (mass/volume)Ordered By: Dr. Shirley on 10-22-2022 Urea nitrogen [Mass/Vol] 25 mg/dL 03-22 [facility] Thin prep Papanicolaou smear with manual screeningOrdered By: Dr. Shirley on 10-22-2022 Thin prep Papanicolaou smear with manual screening 01-17 [facility] XR KNEE THREE VIEWS RIGHTon 03-19-2021 XR KNEE THREE VIEWS RIGHT ORIGINAL INDICATION:ORDERING SYSTEM PROVIDED HISTORY: fall Reason for Exam: fall TECHNIQUE: KNEE 3 VIEWS RIGHT COMPARISON: None available FINDINGS/IMPRESSION: No acute fracture or dislocation. No soft tissue swelling. No suprapatellar joint effusion. Interpreted by: Ab Nesbitt Preliminary Report By: Ab Nesbitt Electronically signed By Ab Nesbitt Dictated Date: 03/19/2021 10:36:22 AM Prelim Date: 03/19/2021 10:37:05 AM Sign Date: 03/19/2021 10:37:05 AM Ordering Provider: RENEE Nye [facility] ([place]) MA MAMMOGRAM SCREENING BILAT ERAL Salvatore/Moreno 03-25-2020 MA MAMMOGRAM SCREENING BILATERAL W/MIRIAM ORIGINAL FROM: [facility] [address], [place] [address] PROCEDURE FOR: JENNIFER TATE [address] [place] [address] Home: PID#: [id number] Exam#: [id number] : 1955 Age: 64 TO: SAGE BLANKENSHIPPKINS FLAKEBOARD LINE TENDER TRANSCRIPTION MANAGER [address], [place] [address] #[id number] BILATERAL DIGITAL SCREENING MAMMOGRAM 3D/2D WITH CAD WITH MEDIOLATERAL OBLIQUE CRANIOCAUDAL: 03/25/2020 Comparison is made to exams dated: 01/10/2019 mammogram and 03/17/2017 mammogram - [facility]. The tissue of both breasts is heterogeneously dense. Current study was also evaluated with a Computer Aided Detection (CAD) system. There is a benign intramammary node in the right breast. There also are benign calcifications in both breasts. No significant masses, calcifications, or other findings are seen in either breast. There has been no significant interval change. IMPRESSION: BENIGN There is no mammographic evidence of malignancy. A 1 year screening mammogram is recommended.(03/26/2021 ) KAMRYN harp/nitza:03/26/2020 17:42:14 Virtual Recruiter(s): RT RITA (Apple)(M), [facility] letter sent: Normal BI-RADS 1&2 Mammogram BI-RADS: 2 Benign Normal [facility] ([place]) SD MAMMOGRAM SCREENING BILAT ERAL W/TOMOon 03-17-2017 MA MAMMOGRAM SCREENING BILATERAL W/MIRIAM ORIGINALFROM:[address] [address]Xyecl: [phone] PROCEDURE FOR:JENNIFER TATE[address] [place], [place] [address]Zoua: [phone]#: [id number]#: [id number]#: [id number]: 1955ge: 61 TO:SAGE BLANKENSHIPPKINS NP[address], [place] [address] #[id number] DIGITAL SCREENING MAMMOGRAM 3D/2D WITH CAD WITH MEDIOLATERAL OBLIQUE CRANIOCAUDAL: 03/17/2017Comparison is made to exam dated: 01/29/2016 mammogram - [facility]. There are scattered fibroglandular elements in [...] 1 year screening mammogram is recommended. ADRI COBB MD ab/penrad:03/18/2017 16:24:13 Virtual Recruiter: MANISH RUDOLPH RT(R)(M)(CT) [facility] sent: Normal BI-RADS 1&2 Mammogram BI-RADS: 2 Benign Normal [facility] Vital Signs Date Time Vital Sign Value Performing Clinician Faci lity 03-13-2025 08:34-0400 Body temperature 97.39 [degF] Clarence Mari FLAKEBOARD LINE TENDER.TRANSCRIPTION MANAGER Work Phone: [facility] 03-13-2025 08:34-0400 Body weight 74.8 kg Clarence Mari FLAKEBOARD LINE TENDER.TRANSCRIPTION MANAGER Work Phone: [facility] 03-13-2025 08:34-0400 Diastolic blood pressure 82 mm[Hg] Clarence Mari FLAKEBOARD LINE TENDER.TRANSCRIPTION MANAGER Work Phone: [facility] 03-13-2025 08:34-0400 Heart rate 95 /min Clarence Mari FLAKEBOARD LINE TENDER.TRANSCRIPTION MANAGER Work Phone: [facility] 03-13-2025 08:34-0400 Respiratory rate 20 /min Clarence Mari FLAKEBOARD LINE TENDER.TRANSCRIPTION MANAGER Work Phone: [facility] 03-13-2025 08:34-0400 SaO2% (BldA) [Mass fraction] 97 % Clarence Mari FLAKEBOARD LINE TENDER.TRANSCRIPTION MANAGER Work Phone: [facility] 03-13-2025 08:34-0400 Systolic blood pressure 120 mm[Hg] Clarence Mari FLAKEBOARD LINE TENDER.TRANSCRIPTION MANAGER Work Phone: [facility] Encounters Encounter Date Encounter Type Care Provider Facility Start: 05-31-2025 ambulatory Abel Mendenhall lity:[facility] Start: 03-13-2025 End: 03-13-2025 Office outpatient visit 25 minutes Clarence Jacey FLAKEBOARD LINE TENDER.TRANSCRIPTION MANAGER Work Phone: [facility] Comment on above: Rash (Primary Dx) Start: 03-13-2025 End: 03-13-2025 ambulatory CLARENCE MARI Facility:[facility] Start: 10-22-2022 End: 10-22-2022 ambulatory [facility] Work Phone: Start: 10-22-2022 End: 10-22-2022 Patient encounter procedure [facility]-Laboratory, [facility] Start: 03-05-2022 End: 03-05-2022 Patient encounter procedure [facility]-Radiology, WC Start: 01-26-2022 End: 01-26-2022 Patient encounter procedure [facility]-Outpatient Bone Densitometry Start: 03-17-2017 Ambulatory PHY WO ID REFERRING Fac ility:[facility] Procedures Date Procedure Procedure Detail Performing Clinician Start: 03-05-2022 Barium enema Start: 01-26-2022 Dual energy X-ray absorptiometry Start: 01-26-2022 Screening mammography Plan of Treatment Date Care Activity Detail Author Start: 2031 RSV Vaccine (1 - 1-d ose 75+ series) RSV Vaccine (1 - 1-dose 75+ series) [facility] Start: 05-04-2026 Urine microalbumin profile DTaP,Tdap,Td Vaccine (2 - Td or Tdap) [facility] Start: 05-06-2025 Influenza vaccination Influenza Vacc ine (#1) [facility] Start: 09-05-2024 Advance Directive Discussion Advance Directive Discussion [facility] Start: 05-06-2024 Covid-19 Vaccine ( season) Covid-19 Vaccine ( season) [facility] Start: 12-26-2021 Screening for malign ant neoplasm of colon [facility] Start: 2021 Screening for osteoporosis Bone Density Screening [facility] Start: 01-08-2011 Screening for malign ant neoplasm of breast Mammogram Screening [facility] Start: 2006 Pneumococcal Vaccine : 50+ (1 of 1 - PCV) Pneumococcal Vaccine: 50+ (1 of 1 - PCV) [facility] Start: 2006 Shingrix Vaccine (1 of 2) Shingrix V accine (1 of 2) [facility] Start: 2001 Diabetes Screening Diabetes Screenin g [facility] Start: 2001 Lipid panel Lipid Screening [facility] Start: 2001 Screening for malign ant neoplasm of colon [facility] Start: 1974 Anxiety Screening Anxiety Screening [facility] Start: 1974 Depression Screening Depression Scre ening [facility] Start: 1974 Hepatitis C screening Hepatitis C Sc reg [facility] Immunizations Immunization Date Immunization Notes Care Provider Royer allen 06-18-2021 influenza virus vaccine, unspecified formulation Clarence Mari FLAKEBOARD LINE TENDER.TRANSCRIPTION MANAGER Work Phone: [facility] Payers Date Payer Category Payer Self-pay [id number] 2024 Private Health Insurance [facility] [id number] 2024 Medicare [id number] 2021 Medicare MEDICARE [id number] 2021 Medicare [id number] 2016 Unknown [id number] Unknown [id number] Social History Date Type Detail [facility] Work Phone: Start: 1955 Sex Assigned At Female [facility] Tobacco smoking stat [facility] Never smoked tobacco [facility] Start: 03-13-2025 Alcoholic beverage intake Current non-drinker of alcohol (finding) [facility] Start: 03-13-2025 History of Social function [facility] Start: 03-13-2025 Tobacco use panel [facility] Start: 1955 Sex assigned at Not on file [facility] Progress note 03-13-2025 Note Date & Type Note Facility 03-13-2025 Note HNO ID: [id number] Author: CLARENCE MARI APRN.TRANSCRIPTION MANAGER Service: ? Author Type: Nurse Practitioner Type: Progress Notes Filed: 03/13/2025 10:00 Note Text: [facility] Yassine Tate is a 69 year old female. Patient presents with: Rash: Poison tiara on face and BECKI eyes Patient came in with a rash on her face, upper eye lids, and left arm. Patient states that she was doing yard work on Tuesday and noticed a rah develop and started itching yesterday. Patient states that this has happened to her in the past. Patient has tried benadryl and a warm compresses but had minimal relief. Patient reports rash is itchy. Patient states that she struggles to see out of left eye due to a swollen eyelid. Patient feels that the rash is spreading to her other eye. Denies fever, pain, vision changes, and eye pain. Rash Pertinent negatives include no cough, diarrhea, eye pain, fatigue, fever, shortness of breath or vomiting. Review of Systems Constitutional: Negative for chills, fatigue and fever. HENT: Negative. Eyes: Positive for itching. Negative for pain, discharge, redness and visual disturbance. Respiratory: Negative for cough and shortness of breath. Gastrointestinal: Negative for abdominal pain, diarrhea, nausea and vomiting. Skin: Positive for rash. Neurological: Negative for dizziness and headaches. PAST MEDICAL HISTORY Diagnosis Date Other and unspecified hyperlipidemia Unspecified essential hypertension PAST SURGICAL HISTORY Procedure Laterality Date PAST SURGICAL HISTORY OF age24 exploratory surgery of bowel-growth size of golf ball excized TOTAL ABDOMINAL HYSTERECT W/WO RMVL TUBE OVARY age36 Hysterectomy, JUANIS for endometriosis ALLERGIES Hydrochlorothiazide MEDICATIONS celecoxib (CELEBREX) 200 mg capsule Take 1 capsule by mouth once daily. cholecalciferol, Vitamin D3, (VITAMIN D3) 1,250 mcg (50,000 unit) cap capsule Take 1 capsule by mouth one time a week. pantoprazole DR (PROTONIX) 40 mg tablet Take 1 tablet by mouth once daily. simvastatin(ZOCOR 10 MG TAB) Take one(1) tablet daily at bedtime. triamcinolone acetonide (KENALOG) 0.1 % cream Apply 1 application to affected area three times a day for 7 days. Apply sparingly to area for rash/itching. predniSONE (DELTASONE) 10 mg tablet Take 4 tabs daily for 3 days, then 2 tabs daily for 3 days, then 1 tab daily for 3 days with food. FAMILY HISTORY Adopted: Yes Problem Relation Age of Onset Breast Cancer Mother mother age 50's Heart Father father of [place] Coronary Artery Disease Brother stents placed Social History Tobacco Use Smoking status: Never Substance Use Topics Alcohol use: No Comment: occasional Drug use: No Objective BP 120/82 Pulse 95 Temp 36.3 ?C (97.4 ?F) Resp 20 Wt 74.8 kg (164 lb 14.5 oz) SpO2 97% Physical Exam Constitutional: Appearance: Normal appearance. HENT: Head: Normocephalic and atraumatic. Right Ear: Tympanic membrane, ear canal and external ear normal. Left Ear: Tympanic membrane, ear canal and external ear normal. Mouth/Throat: Mouth: Mucous membranes are moist. Pharynx: Oropharynx is clear. Uvula midline. Eyes: General: Right eye: No discharge. Left eye: No discharge. Extraocular Movements: Extraocular movements intact. Conjunctiva/sclera: Conjunctivae normal. Pupils: Pupils are equal, round, and reactive to light. Comments: Periorbital rash around eyes. Left eyelid red and swollen, no scleral redness, or discharge. Cardiovascular: Rate and Rhythm: Normal rate and regular rhythm. Heart sounds: Normal heart sounds. Pulmonary: Effort: Pulmonary effort is normal. Breath sounds: Normal breath sounds. Skin: General: Skin is warm and dry. Findings: Rash present. Rash is vesicular. Comments: Red vesicular rash located on left wrist and bilaterally on face. Neurological: Mental Status: She is alert and oriented to person, place, and time. Psychiatric: Behavior: Behavior is cooperative. Patient states no new medication changes. Overall, patient feels well with no systemic symptoms. {ASSESSMENT/PLAN: 1. Rash - ICD9: 782.1, ICD10: R21 - Rapid onset of rash, located bilaterally on patient. Concern for contact dermatitis due to plant exposure - Patient to begin prednisone for rash - Patient instructed to also take zyrtec everyday to help with symptoms - Patient also prescribed kenalog cream and was educated to avoid applying to areas of thin skin including face, armpits, breasts, and genitals. - Patient also educated to avoid taking Celebrex with prednisone due to risk of GI ulcers and bleeding - Patient will follow up if fever, pain, vision changes, or eye pain develops - Patient agreeable to care plan with no questions at this time Dorian Ravi [facility] Procedures TEACHING PROVIDER (Physician/PA/FLAKEBOARD LINE TENDER) NOTE OF PERSONAL INVOLVEMENT IN CARE: I have personally seen and exami (more content not included)... [facility] History of Present illness Narrative 03-13-2025 Clarence Mari APRN.[facility] - 03/13/2025 9:26 AM EDTPClarence guillen APRN.[facility] - 03/13/2025 8:43 AM EDT Note Date & Type Note Facility 03-13-2025 History of Presen t illness Narrative [facility] Yassine Jennifer Tate is a 69 year old female. Patient presents with: Rash: Poison tiara on face and BECKI eyes Patient came in with a rash on her face, upper eye lids, and left arm. Patient states that she was doing yard work on Tuesday and noticed a rah develop and started itching yesterday. Patient states that this has happened to her in the past. Patient has tried benadryl and a warm compresses but had minimal relief. Patient reports rash is itchy. Patient states that she struggles to see out of left eye due to a swollen eyelid. Patient feels that the rash is spreading to her other eye. Denies fever, pain, vision changes, and eye pain. Rash Pertinent negatives include no cough, diarrhea, eye pain, fatigue, fever, shortness of breath or vomiting. Review of Systems Constitutional: Negative for chills, fatigue and fever. HENT: Negative. Eyes: Positive for itching. Negative for pain, discharge, redness and visual disturbance. Respiratory: Negative for cough and shortness of breath. Gastrointestinal: Negative for abdominal pain, diarrhea, nausea and vomiting. Skin: Positive for rash. Neurological: Negative for dizziness and headaches. PAST MEDICAL HISTORY Diagnosis Date Other and unspecified hyperlipidemia Unspecified essential hypertension PAST SURGICAL HISTORY Procedure Laterality Date PAST SURGICAL HISTORY OF age24 exploratory surgery of bowel-growth size of golf ball excized TOTAL ABDOMINAL HYSTERECT W/WO RMVL TUBE OVARY age36 Hysterectomy, JUANIS for endometriosis ALLERGIES Hydrochlorothiazide MEDICATIONS celecoxib (CELEBREX) 200 mg capsule Take 1 capsule by mouth once daily. cholecalciferol, Vitamin D3, (VITAMIN D3) 1,250 mcg (50,000 unit) cap capsule Take 1 capsule by mouth one time a week. pantoprazole DR (PROTONIX) 40 mg tablet Take 1 tablet by mouth once daily. simvastatin(ZOCOR 10 MG TAB) Take one(1) tablet daily at bedtime. triamcinolone acetonide (KENALOG) 0.1 % cream Apply 1 application to affected area three times a day for 7 days. Apply sparingly to area for rash/itching. predniSONE (DELTASONE) 10 mg tablet Take 4 tabs daily for 3 days, then 2 tabs daily for 3 days, then 1 tab daily for 3 days with food. FAMILY HISTORY Adopted: Yes Problem Relation Age of Onset Breast Cancer Mother mother age 50's Heart Father father of [place] Coronary Artery Disease Brother stents placed Social History Tobacco Use Smoking status: Never Substance Use Topics Alcohol use: No Comment: occasional Drug use: No Objective BP 120/82 Pulse 95 Temp 36.3 C (97.4 F) Resp 20 Wt 74.8 kg (164 lb 14.5 oz) SpO2 97% Physical Exam Constitutional: Appearance: Normal appearance. HENT: Head: Normocephalic and atraumatic. Right Ear: Tympanic membrane, ear canal and external ear normal. Left Ear: Tympanic membrane, ear canal and external ear normal. Mouth/Throat: Mouth: Mucous membranes are moist. Pharynx: Oropharynx is clear. Uvula midline. Eyes: General: Right eye: No discharge. Left eye: No discharge. Extraocular Movements: Extraocular movements intact. Conjunctiva/sclera: Conjunctivae normal. Pupils: Pupils are equal, round, and reactive to light. Comments: Periorbital rash around eyes. Left eyelid red and swollen, no scleral redness, or discharge. Cardiovascular: Rate and Rhythm: Normal rate and regular rhythm. Heart sounds: Normal heart sounds. Pulmonary: Effort: Pulmonary effort is normal. Breath sounds: Normal breath sounds. Skin: General: Skin is warm and dry. Findings: Rash present. Rash is vesicular. Comments: Red vesicular rash located on left wrist and bilaterally on face. Neurological: Mental Status: She is alert and oriented to person, place, and time. Psychiatric: Behavior: Behavior is cooperative. Patient states no new medication changes. Overall, patient feels well with no systemic symptoms. {ASSESSMENT/PLAN: 1. Rash - ICD9: 782.1, ICD10: R21 - Rapid onset of rash, located bilaterally on patient. Concern for contact dermatitis due to plant exposure - Patient to begin prednisone for rash - Patient instructed to also take zyrtec everyday to help with symptoms - Patient also prescribed kenalog cream and was educated to avoid applying to areas of thin skin including face, armpits, breasts, and genitals. - Patient also educated to avoid taking Celebrex with prednisone due to risk of GI ulcers and bleeding - Patient will follow up if fever, pain, vision changes, or eye pain develops - Patient agreeable to care plan with no questions at this time Dorian Ravi MDM Procedures TEACHING PROVIDER (Physician/PA/FLAKEBOARD LINE TENDER) NOTE OF PERSONAL INVOLVEMENT IN CARE: I have personally seen and examined the patient and performed the medical decision-making components. I have reviewed the Advanced Practice Registered Nurse (FLAKEBOARD LINE TENDER) Student's documentation and verified the findings in the note as written. Any additions or changes are noted in bold/italics. Signature: Clarence Mari Date: 03/13/2025 Time: 10:00 AM [facility] Subjective Jennifer Tate is a 69 year old female. Patient presents with: Rash: Poison tiara on face and BECKI eyes Patient came in with a rash on her face, upper eye lids, and left arm. Patient states that she was doing yard work on Tuesday and noticed a rah develop and started itching yesterday. Patient states that this has happened to her in the past. Patient has tried benadryl and a warm compresses but had minimal relief. Patient reports rash is itchy. Patient states that she struggles to see out of left eye due to a swollen eyelid. Patient feels that the rash is spreading to her other eye. Denies fever, pain, vision changes, and eye pain. Rash Pertinent negatives include no cough, diarrhea, eye pain, fatigue, fever, shortness of breath or vomiting. Review of Systems Constitutional: Negative for chills, fatigue and fever. HENT: Negative. Eyes: Positive for itching. Negative for pain, discharge, redness and visual disturbance. Respiratory: Negative for cough and shortness of breath. Gastrointestinal: Negative for abdominal pain, diarrhea, nausea and vomiting. Skin: Positive for rash. Neurological: Negative for dizziness and headaches. PAST MEDICAL HISTORY Diagnosis Date Other and unspecified hyperlipidemia Unspecified essential hypertension PAST SURGICAL HISTORY Procedure Laterality Date PAST SURGICAL HISTORY OF age24 exploratory surgery of bowel-growth size of golf ball excized TOTAL ABDOMINAL HYSTERECT W/WO RMVL TUBE OVARY age36 Hysterectomy, JUANIS for endometriosis ALLERGIES Hydrochlorothiazide MEDICATIONS celecoxib (CELEBREX) 200 mg capsule Take 1 capsule by mouth once daily. cholecalciferol, Vitamin D3, (VITAMIN D3) 1,250 mcg (50,000 unit) cap capsule Take 1 capsule by mouth one time a week. pantoprazole DR (PROTONIX) 40 mg tablet Take 1 tablet by mouth once daily. simvastatin(ZOCOR 10 MG TAB) Take one(1) tablet daily at bedtime. triamcinolone acetonide (KENALOG) 0.1 % cream Apply 1 application to affected area three times a day for 7 days. Apply sparingly to area for rash/itching. predniSONE (DELTASONE) 10 mg tablet Take 4 tabs daily for 3 days, then 2 tabs daily for 3 days, then 1 tab daily for 3 days with food. FAMILY HISTORY Adopted: Yes Problem Relation Age of Onset Breast Cancer Mother mother age 50's Heart Father father of [place] Coronary Artery Disease Brother stents placed Social History Tobacco Use Smoking status: Never Substance Use Topics Alcohol use: No Comment: occasional Drug use: No Objective BP 120/82 Pulse 95 Temp 36.3 C (97.4 F) Resp 20 Wt 74.8 kg (164 lb 14.5 oz) SpO2 97% Physical Exam Constitutional: Appearance: Normal appearance. HENT: Head: Normocephalic and atraumatic. Right Ear: Tympanic membrane, ear canal and external ear normal. Left Ear: Tympanic membrane, ear canal and external ear normal. Mouth/Throat: Mouth: Mucous membranes are moist. Pharynx: Oropharynx is clear. Uvula midline. Eyes: General: Right eye: No discharge. Left eye: No discharge. Extraocular Movements: Extraocular movements intact. Conjunctiva/sclera: Conjunctivae normal. Pupils: Pupils are equal, round, and reactive to light. Comments: Periorbital rash around eyes. Left eyelid red and swollen, no scleral redness, or discharge. Cardiovascular: Rate and Rhythm: Normal rate and regular rhythm. Heart sounds: Normal heart sounds. Pulmonary: Effort: Pulmonary effort is normal. Breath sounds: Normal breath sounds. Skin: General: Skin is warm and dry. Findings: Rash present. Rash is vesicular. Comments: Red vesicular rash located on left wrist and bilaterally on face. Neurological: Mental Status: She is alert and oriented to person, place, and time. Psychiatric: Behavior: Behavior is cooperative. {ASSESSMENT/PLAN: 1. Rash - ICD9: 782.1, ICD10: R21 - Patient to begin prednisone for rash - Patient instructed to also take zyrtec everyday to help with symptoms - Patient also prescribed kenalog cream and was educated to avoid applying to areas of thin skin including face, armpits, breasts, and genitals. - Patient also educated to avoid taking Celebrex with prednisone due to risk of GI ulcers and bleeding - Patient will follow up if fever, pain, vision changes, or eye pain develops - Patient agreeable to care plan with no questions at this time Dorian Ravi [facility] Procedures documented in this encounter [facility] Progress note 03-13-2025 Note Date & Type Note Facility 03-13-2025 Note HNO ID: [id number] Author: CLARENCE MARI APRN.BOLIVAR Service: ? Author Type: Nurse Practitioner Type: Progress Notes Filed: 03/13/2025 10:00 Note Text: [facility] Yassine Jennifer Tate is a 69 year old female. Patient presents with: Rash: Poison tiara on face and BECKI eyes Patient came in with a rash on her face, upper eye lids, and left arm. Patient states that she was doing yard work on Tuesday and noticed a rah develop and started itching yesterday. Patient states that this has happened to her in the past. Patient has tried benadryl and a warm compresses but had minimal relief. Patient reports rash is itchy. Patient states that she struggles to see out of left eye due to a swollen eyelid. Patient feels that the rash is spreading to her other eye. Denies fever, pain, vision changes, and eye pain. Rash Pertinent negatives include no cough, diarrhea, eye pain, fatigue, fever, shortness of breath or vomiting. Review of Systems Constitutional: Negative for chills, fatigue and fever. HENT: Negative. Eyes: Positive for itching. Negative for pain, discharge, redness and visual disturbance. Respiratory: Negative for cough and shortness of breath. Gastrointestinal: Negative for abdominal pain, diarrhea, nausea and vomiting. Skin: Positive for rash. Neurological: Negative for dizziness and headaches. PAST MEDICAL HISTORY Diagnosis Date Other and unspecified hyperlipidemia Unspecified essential hypertension PAST SURGICAL HISTORY Procedure Laterality Date PAST SURGICAL HISTORY OF age24 exploratory surgery of bowel-growth size of golf ball excized TOTAL ABDOMINAL HYSTERECT W/WO RMVL TUBE OVARY age36 Hysterectomy, JUANIS for endometriosis ALLERGIES Hydrochlorothiazide MEDICATIONS celecoxib (CELEBREX) 200 mg capsule Take 1 capsule by mouth once daily. cholecalciferol, Vitamin D3, (VITAMIN D3) 1,250 mcg (50,000 unit) cap capsule Take 1 capsule by mouth one time a week. pantoprazole DR (PROTONIX) 40 mg tablet Take 1 tablet by mouth once daily. simvastatin(ZOCOR 10 MG TAB) Take one(1) tablet daily at bedtime. triamcinolone acetonide (KENALOG) 0.1 % cream Apply 1 application to affected area three times a day for 7 days. Apply sparingly to area for rash/itching. predniSONE (DELTASONE) 10 mg tablet Take 4 tabs daily for 3 days, then 2 tabs daily for 3 days, then 1 tab daily for 3 days with food. FAMILY HISTORY Adopted: Yes Problem Relation Age of Onset Breast Cancer Mother mother age 50's Heart Father father of [place] Coronary Artery Disease Brother stents placed Social History Tobacco Use Smoking status: Never Substance Use Topics Alcohol use: No Comment: occasional Drug use: No Objective BP 120/82 Pulse 95 Temp 36.3 ?C (97.4 ?F) Resp 20 Wt 74.8 kg (164 lb 14.5 oz) SpO2 97% Physical Exam Constitutional: Appearance: Normal appearance. HENT: Head: Normocephalic and atraumatic. Right Ear: Tympanic membrane, ear canal and external ear normal. Left Ear: Tympanic membrane, ear canal and external ear normal. Mouth/Throat: Mouth: Mucous membranes are moist. Pharynx: Oropharynx is clear. Uvula midline. Eyes: General: Right eye: No discharge. Left eye: No discharge. Extraocular Movements: Extraocular movements intact. Conjunctiva/sclera: Conjunctivae normal. Pupils: Pupils are equal, round, and reactive to light. Comments: Periorbital rash around eyes. Left eyelid red and swollen, no scleral redness, or discharge. Cardiovascular: Rate and Rhythm: Normal rate and regular rhythm. Heart sounds: Normal heart sounds. Pulmonary: Effort: Pulmonary effort is normal. Breath sounds: Normal breath sounds. Skin: General: Skin is warm and dry. Findings: Rash present. Rash is vesicular. Comments: Red vesicular rash located on left wrist and bilaterally on face. Neurological: Mental Status: She is alert and oriented to person, place, and time. Psychiatric: Behavior: Behavior is cooperative. {ASSESSMENT/PLAN: 1. Rash - ICD9: 782.1, ICD10: R21 - Patient to begin prednisone for rash - Patient instructed to also take zyrtec everyday to help with symptoms - Patient also prescribed kenalog cream and was educated to avoid applying to areas of thin skin including face, armpits, breasts, and genitals. - Patient also educated to avoid taking Celebrex with prednisone due to risk of GI ulcers and bleeding - Patient will follow up if fever, pain, vision changes, or eye pain develops - Patient agreeable to care plan with no questions at this time Dorian Ravi MDM Procedures [facility] Evaluation note Note Date & Type Note Facility Evaluation note No assessment information availa ble [facility] Work Phone: Evaluation note Note Date & Type Note Facility Evaluation note Diagnosis Rash- Primary Rash and other nonspecific skin eruption documented in this encounter [facility] Summary Purpose Family History No Family History Records FoundNo Family History Records FoundNo Family History Records FoundNo Family History Records Found Advance Directives No Advanced Directives Records FoundNo Advanced Directives Records FoundNo Advanced Directives Records FoundNo Advanced Directives Records Found Chief Complaint and Reason for Visit Chief Complaint SCREENING OSTEO Chief Complaint SCREENING OSTEO INCOMPLETE COLONOSCOPY Additional Source Comments INFORMATION SOURCE (unrecogn ized section and content) DATE CREATED AUTHOR 03/01/2018 [employer] [employer] DATE CREATED AUTHOR AUTHOR'S ORGANIZ ATION 03/20/2021 [employer] ([place]) DATE CREATED AUTHOR AUTHOR'S ORGANIZ ATION 03/17/2025 [facility] DATE CREATED AUTHOR AUTHOR'S ORGANIZ ATION 05/25/2025 [facility] Goals (unrecognized section and content) Goals may be documented in a n alternate sectionGoals may be documented in an alternate sectionGoals may be documented in an alternate section Care Teams (unrecognized sec tion and content) Team Status: Active Member Role Status Dates Sage Lund [employer] WORKER, [employer] WORKER-C Family Provider Activ e Dr. Napoleon Shirley MD Primary Care Provider Activ e Team Status: Inactive Member Role Status Dates Dr. Napoleon Shirley MD Primary Care Provider, Attending Provider, Referring Provider Active Source Comments (unrecognize d section and content) In the event this informatio n is protected by the Federal Confidentiality of Alcohol and Drug Abuse Patient Records regulations: The Federal rules restrict any use of the information to criminally investigate or prosecute any alcohol or drug abuse patient.[facility] Reason for Visit (unrecogniz ed section and content) Reason Comments Rash Poison tiara on face a nd BECKI eyes FOR RECORDS PERTAINING TO PATIENTS WHO ARE OR HAVE BEEN ENROLLED IN A CHEMICAL DEPENDENCY/SUBSTANCEABUSE PROGRAM, SOME INFORMATION MAY BE OMITTED. This clinical summary was aggregated from multiple sources. Caution should be exercised in using it in the provision of clinical care. This summary normalizes information from multiple sources, and as a consequence, information in this document may materially change the coding, format and clinical context of patient data. In addition, data may be omitted in some cases. CLINICAL DECISIONS SHOULD BE BASED ON THE PRIMARY CLINICAL RECORDS. [employer] provides no warranty or guarantee of the accuracy or completeness of information in this document.
--- OUTSIDE RECORDS SUMMARY | 2025-05-31 07:20 | XMS RPT_ITS | CCD ---
Author Organization [facility] Inform ion Partnership [facility] Care Team Providers Care Department Store Door Greeter Name Role Phone REFERRING, NEGAR BLACKMAN Unavailable Unavailable SAGE LUND Unavailable Unavailable SAGE LUND Unavailable Unavailable Unavailable Primary Care Provider UnavailCLARENCE Marroquin Attending Unavailable Abel Shirley Referring Unavailable Abel Shirley Attending Unavailable Abel Shirley Primary Care Unavailable Allergies Allergy Classification Reported Allergen(s) Allergy Type Date of Onset Reaction(s) Facility (2 sources) hydroCHLOROthiazi de; Translations: [HYDROCHLOROTHIAZ KATHY] Drug Allergy 01-08-[address] [facility] Medications Current Medications Medication Drug Class(es) Dates [...] Test Name Value Interpretation Reference Range Facility [facility] 03-13-2025 CNOV Office Visit ([facility]) JENNIFER TATE ([id number]) 1955 F Date Time Provider Department 03/13/25 [...] mother age 50's Heart Father father of [place] Coronary Artery Disease Brother stents placed Social [...] time Dorian Ravi MDM Procedures Clarence Mari APRN.SENIOR ACCOUNT REPRESENTATIVE 7 (more content not included)... Normal [facility] Molina Basophil percentageOrdered B y: Dr. Shirley on 10-22-2022 Basophil percentage 3.6 mg/dL 2.5-4.9 [facility] Chloride [Moles/Vol] 111 mmol/L 98-107 [facility] Glucose [Mass/Vol] 97 mg/dL 74-106 [facility] Potassium [Moles/Vol] 4.4 mmol/L 3.5-5.1 [facility] Comment on above: Slight Hemolysis, Re sult may be falsely increased. Sodium [Moles/Vol] 141 mmol/L 136-145 [facility] Laboratory - Chemistry and C hemistry - challengeOrdered By: Dr. Shirley on 10-22-2022 CO2 [Moles/Vol] 23.0 mmol/L 21.0-32.0 [facility] Magnesium [Mass/Vol] 2.1 mg/dL 1.6-2.6 [facility] Comment on above: Slight Hemolysis, Re sult may be falsely increased. Urea nitrogen/Creatinine [Mass ratio] 26.6 mg/mg 10-20 [facility] No Panel InformationOrdered By: Dr. Shirley on 10-22-2022 Estimated GFR (MDRD) Amer 77 mL/min >60 [facility] Comment on above: GFR Calc Estimated GFR (MDRD) Non-Af Amer 63 mL/min >60 [facility] Comment on above: Non- GFR Calc Ionized Calcium 5.3 mg/dL 4.5-5.6 [facility] Comment on above: Performed at: [address] [id number] Director: Jono Fong PhD, Phone: [phone] Parathyroid Hormone (Intact) 46.0 pg/mL 18.4-80.1 [facility] Vitamin D 25-Hydroxy 93.7 ng/mL [facility] Comment on above: Vitamin D 25(OH) Sta tus Range Deficiency <20 ng/mL (50nmol/L) Insufficiency 20 - 30 ng/mL (50 - 75 nmol/L) Sufficiency 30 - 100 ng/mL (75 - 250 nmol/L) Toxicity >100 ng/mL (>250 nmol/L) Serum or plasma calcium villa urement (mass/volume)Ordered By: Dr. Shirley on 10-22-2022 Calcium [Mass/Vol] 8.9 mg/dL 8.5-10.1 [facility] Serum or plasma creatinine m easurement (mass/volume)Ordered By: Dr. Shirley on 10-22-2022 Creatinine [Mass/Vol] 0.94 mg/dL 0.55-1.02 [facility] Comment on above: The validity of the calculated GFR & GFRAA in patients over 70 years has not been determined. Clinical correlation is essential. Serum or plasma urea nitroge n measurement (mass/volume)Ordered By: Dr. Shirley on 10-22-2022 Urea nitrogen [Mass/Vol] 25 mg/dL 03-22 [facility] Thin prep Papanicolaou smear with manual screeningOrdered By: Dr. Shirley on 10-22-2022 Thin prep Papanicolaou smear with manual screening 01-17 [facility] XR KNEE THREE VIEWS RIGHTon 03-19-2021 XR [...] 03/19/2021 10:37:05 AM Ordering Provider: RENEE Nye [facility] ([place]) [place] MAMMOGRAM SCREENING BILAT ERAL Salvatore/Moreno 03-25-2020 [place] MAMMOGRAM SCREENING BILATERAL W/MIRIAM ORIGINAL FROM: [facility] [address], [place] [address] PROCEDURE FOR: JENNIFER TATE [address] [place] [address] Home: PID#: [id number] Exam#: [id number] : 1955 Age: 64 TO: SAGE BLANKENSHIPPKINS DOLLY DRIVER SENIOR ACCOUNT REPRESENTATIVE [address], [place] [address] #[id number] BILATERAL DIGITAL SCREENING MAMMOGRAM 3D/2D WITH CAD WITH MEDIOLATERAL OBLIQUE CRANIOCAUDAL: 03/25/2020 Comparison is made to exams dated: 01/10/2019 mammogram and 03/17/2017 mammogram - [facility]. The tissue of both breasts [...] mammogram is recommended.(03/26/2021 ) KAMRYN harp/nitza:03/26/2020 17:42:14 Spine Supervisor(s): RT RITA (Apple)(M), [facility] letter sent: Normal BI-RADS 1&2 Mammogram BI-RADS: 2 Benign Normal [facility] ([place]) [place] MAMMOGRAM SCREENING BILAT ERAL W/TOMOon 03-17-2017 [place] MAMMOGRAM SCREENING BILATERAL W/MIRIAM ORIGINALFROM:[address] [address]Zsoyb: [phone] PROCEDURE FOR:JENNIFER TATE[address], [place] [address]Iszm: [phone]#: [id number]#: [id number]#: [id number]: 1955ge: 61 TO:SAGE BLANKENSHIPPKINS NP[address], [place] [address] #[id number] DIGITAL SCREENING MAMMOGRAM 3D/2D WITH CAD WITH MEDIOLATERAL OBLIQUE CRANIOCAUDAL: 03/17/2017Comparison is made to exam dated: 01/29/2016 mammogram - [facility]. There are scattered fibroglandular elements [...] is recommended. ADRI COBB MD ab/penrad:03/18/2017 16:24:13 Spine Supervisor: MANISH RUDOLPH RT(R)(M)(CT) [facility]: Normal BI-RADS 1&2 Mammogram BI-RADS: 2 Benign Normal [facility] Vital Signs Date Time Vital Sign Value Performing Clinician Faci lity 03-13-2025 08:34-0400 Body temperature 97.39 [degF] Clarence Mari DOLLY DRIVER.SENIOR ACCOUNT REPRESENTATIVE Work Phone: [facility] 03-13-2025 08:34-0400 Body weight 74.8 kg Clarence Mari DOLLY DRIVER.SENIOR ACCOUNT REPRESENTATIVE Work Phone: [facility] 03-13-2025 08:34-0400 Diastolic blood pressure 82 mm[Hg] Clarence Mari DOLLY DRIVER.SENIOR ACCOUNT REPRESENTATIVE Work Phone: [facility] 03-13-2025 08:34-0400 Heart rate 95 /min Clarence Mari DOLLY DRIVER.SENIOR ACCOUNT REPRESENTATIVE Work Phone: [facility] 03-13-2025 08:34-0400 Respiratory rate 20 /min Clarence Mari DOLLY DRIVER.SENIOR ACCOUNT REPRESENTATIVE Work Phone: [facility] 03-13-2025 08:34-0400 SaO2% (BldA) [Mass fraction] 97 % Clarence Mari DOLLY DRIVER.SENIOR ACCOUNT REPRESENTATIVE Work Phone: [facility] 03-13-2025 08:34-0400 Systolic blood pressure 120 mm[Hg] Clarence Mari DOLLY DRIVER.SENIOR ACCOUNT REPRESENTATIVE Work Phone: [facility] Encounters Encounter Date Encounter Type Care Provider Facility Start: 05-31-2025 ambulatory Abel Mendenhall lity:[facility] Start: 03-13-2025 End: 03-13-2025 Office outpatient visit 25 minutes Clarence Jacey DOLLY DRIVER.SENIOR ACCOUNT REPRESENTATIVE Work Phone: [facility] Comment on above: Rash (Primary Dx) Start: 03-13-2025 End: 03-13-2025 ambulatory CLARENCE MARI Facility:[facility] Start: 10-22-2022 End: 10-22-2022 ambulatory [facility] Work Phone: Start: 10-22-2022 End: 10-22-2022 Patient encounter procedure [facility]-Laboratory, [facility] Start: 03-05-2022 End: 03-05-2022 Patient encounter procedure [facility]-Radiology, [facility] Start: 01-26-2022 End: 01-26-2022 Patient encounter procedure [facility]-Outpatient Bone Densitometry Start: 03-17-2017 Ambulatory PHY WO ID REFERRING Fac ility:[facility] Procedures Date Procedure Procedure Detail Performing Clinician Start: 03-05-2022 Barium enema Start: 01-26-2022 Dual energy X-ray absorptiometry Start: 01-26-2022 Screening mammography Plan of Treatment Date Care Activity Detail Author Start: 2031 RSV Vaccine (1 - 1-d ose 75+ series) RSV Vaccine (1 - 1-dose 75+ series) [facility] Start: 05-04-2026 Urine microalbumin profile DTaP,Tdap,Td Vaccine (2 - Td or Tdap) [facility] Start: 05-06-2025 Influenza vaccination Influenza Vacc ine (#1) [facility] Start: 09-05-2024 Advance Directive Discussion Advance Directive Discussion [facility] Start: 05-06-2024 Covid-19 Vaccine ( season) Covid-19 Vaccine ( season) [facility] Start: 12-26-2021 Screening for malign ant neoplasm of colon [facility] Start: 2021 Screening for osteoporosis Bone Density Screening [facility] Start: 01-08-2011 Screening for malign ant neoplasm of breast Mammogram Screening [facility] Start: 2006 Pneumococcal Vaccine : 50+ (1 of 1 - PCV) Pneumococcal Vaccine: 50+ (1 of 1 - PCV) [facility] Start: 2006 Shingrix Vaccine (1 of 2) Shingrix V accine (1 of 2) [facility] Start: 2001 Diabetes Screening Diabetes Screenin g [facility] Start: 2001 Lipid panel Lipid Screening [facility] Start: 2001 Screening for malign ant neoplasm of colon [facility] Start: 1974 Anxiety Screening Anxiety Screening [facility] Start: 1974 Depression Screening Depression Scre ening [facility] Start: 1974 Hepatitis C screening Hepatitis C Sc reg [facility] Immunizations Immunization Date Immunization Notes Care Provider Royer allen 06-18-2021 influenza virus vaccine, unspecified formulation Clarence Mari DOLLY DRIVER.SENIOR ACCOUNT REPRESENTATIVE Work Phone: [facility] Payers Date Payer Category Payer Self-pay [id number] 2024 Private Health Insurance [facility] [id number] 2024 Medicare [id number] 2021 Medicare MEDICARE [id number] 2021 Medicare [id number] 2016 Unknown [id number] Unknown [id number] Social History Date Type Detail [facility] Work Phone: Start: 1955 Sex Assigned At Female W [facility] Tobacco smoking stat [facility] Never smoked tobacco [facility] Start: 03-13-2025 Alcoholic beverage intake Current non-drinker of alcohol (finding) [facility] Start: 03-13-2025 History of Social function [facility] Start: 03-13-2025 Tobacco use panel [facility] Start: 1955 Sex assigned at Not on file [facility] Progress note 03-13-2025 Note Date & Type Note Facility 03-13-2025 Note HNO ID: [id number] Author: CLARENCE MARI APRN.SENIOR ACCOUNT REPRESENTATIVE Service: ? Author Type: Nurse Practitioner Type: Progress Notes Filed: 03/13/2025 10:00 Note Text: URGENT CARE CAPITAN Yassine Tate is a 69 year old [...] mother age 50's Heart Father father of [place] Coronary Artery Disease Brother stents placed Social [...] with no questions at this time Dorian aRvi [facility] Procedures TEACHING PROVIDER (Physician/PA/DOLLY DRIVER) NOTE OF PERSONAL INVOLVEMENT IN CARE: I have personally seen and exami (more content not included)... [facility] History of Present illness Narrative 03-13-2025 Clarence Mari APRN.[facility] - 03/13/2025 9:26 AM EDTPClarence guillen APRN.[facility] - 03/13/2025 8:43 AM EDT Note [...] mother age 50's Heart Father father of [place] Coronary Artery Disease Brother stents placed Social [...] time Dorian Ravi MDM Procedures TEACHING PROVIDER (Physician/PA/DOLLY DRIVER) NOTE OF PERSONAL INVOLVEMENT IN CARE: I have personally seen and examined the patient and performed the medical decision-making components. I have reviewed the Advanced Practice Registered Nurse (DOLLY DRIVER) Student's documentation and verified the findings in [...] mother age 50's Heart Father father of [place] Coronary Artery Disease Brother stents placed Social [...] no questions at this time Dorian Ravi [facility] Procedures documented in this encounter [facility] Progress note 03-13-2025 Note Date & Type Note Facility 03-13-2025 Note HNO ID: [id number] Author: CLARENCE MARI APRN.BOLIVAR Service: ? Author [...] mother age 50's Heart Father father of [place] Coronary Artery Disease Brother stents placed Social [...] at this time Dorian Ravi MDM Procedures [facility] Evaluation note Note Date & Type Note Facility Evaluation note No assessment information availa ble [facility] Work Phone: Evaluation note Note Date & Type Note Facility Evaluation note Diagnosis Rash- Primary Rash and other nonspecific skin eruption documented in this encounter [facility] Summary Purpose Family History No Family [...] section and content) DATE CREATED AUTHOR 03/01/2018 [facility] DATE CREATED AUTHOR AUTHOR'S ORGANIZ ATION 03/20/2021 [facility] ([place]) DATE CREATED AUTHOR AUTHOR'S ORGANIZ ATION 03/17/2025 [facility] DATE CREATED AUTHOR AUTHOR'S ORGANIZ ATION 05/25/2025 [facility] Goals (unrecognized section and content) Goals may be documented in a n alternate sectionGoals may be documented in an alternate sectionGoals may be documented in an alternate section Care Teams (unrecognized sec tion and content) Team Status: Active Member Role Status Dates Sage Lund VACUUM METALIZING SUPERVISOR, VACUUM METALIZING SUPERVISOR-C Family Provider Activ e Dr. Napoleon Shirley [...] or prosecute any alcohol or drug abuse patient.[facility] Reason for Visit (unrecogniz ed section [...] BE BASED ON THE PRIMARY CLINICAL RECORDS. [employer] provides no warranty or guarantee of the accuracy or completeness of information in this document.
== END | disposition home or self-care (01) ==
LOC: OPBI 07:16
PROVIDERS: PCP Family Medicine; Referring Provider Family Medicine; Visit Provider Family Medicine
DX: Z12.31 Encounter for screening mammogram for malignant neoplasm of breast (principal)
CPT/HCPCS: 77063; 77067

== ENCOUNTER → 2025-07-23 | Outpatient (CLI) | payer MEDICARE, OTHER, SELFPAY ==
[2025-07-23 10:50] LABS: AST(SGOT) 25 U/L (<=31); Alanine Aminotransfer ALT/SGPT 18 U/L (<=34); Albumin, Serum 4.3 g/dL (3.4-4.8); Alkaline Phosphatase 90 U/L (35-104); Anion Gap 10 (5-15); BUN 21 mg/dL (4-19); BUN/Creat Ratio 26.9 RATIO (10-20); Calcium,Total 9.3 mg/dL (7.6-11.0); Carbon Dioxide 26.1 mmol/L (21.0-32.0); Chloride 106 mmol/L (98-108); Cholesterol 207 mg/dL (<=200); Globulin 2.5 g/dL (2.2-4.2); Glucose 89 mg/dL (70-99); Low Density Lipoprotein Calc. 121 mg/dL; Potassium 4.1 mmol/L (3.3-5.1); Triglycerides 69 mg/dL; Very Low Density Lipoprotein 14 mg/dL (5-40); Vitamin D,25 Hydroxy 89.8 ng/mL (30-100); cholesterol:hdl ratio screen 2.81
== END | disposition home or self-care (01) ==
LOC: MTLAB 08:59
PROVIDERS: PCP Family Medicine; Referring Provider Family Medicine; Visit Provider Family Medicine
DX: M81.0 Age-related osteoporosis without current pathological fracture (principal); E78.5 Hyperlipidemia, unspecified
CPT/HCPCS: 36415; 80053; 80061; 82306; 84443